=== PATIENT | male | born 1955 | race Caucasian/White ===

== ENCOUNTER 2016-08-29 15:24 | Emergency (ER) | payer OTHER ==
[~2016-08-29] VITALS: Ht 172.7 cm; Wt 86.2 kg
[2016-08-29 15:33] VITALS: BP 146/95
--- NOTE | 2016-08-29 16:11 | ED SKIN/ALLERGY COMPLAINT ---
History of Present Illness General Chief Complaint: Animal/Insect Bite Stated Complaint: BEE STING ON LEG Source: patient, family, old records Exam Limitations: no limitations Vital Signs & Intake/Output Vital Signs & Intake/Output Vital Signs Date Time Temp Pulse Resp B/P B/P Pulse O2 O2 Flow FiO2 Mean Ox Delivery Rate 08/29 1533 98.3 95 15 146/95 97 Room Air Room Air Allergies Coded Allergies: bee venom protein (honey bee) (Severe, THROAT SWELLING 08/29/16) Reconcile Medications Cephalexin (Keflex) 500 MG CAPSULE 1 CAP PO TID cellulitis Triage Note: PT TO ED FOR BEE STING THAT HAPPENED ON WEDNESDAY, HAS AN ALLERGY TO BEES, BUT TOOK BENADRYL IMMEDIATELY AND IT WAS OKAY. PT SEEN BY DR. MOLINA YESTERDAY WHO SAID IT WAS FINE, BUT TODAY ITS WARM, RED AND HOT TO TOUCH. Triage Nurses Notes Reviewed? yes Onset: Abrupt Duration: day(s): (3), constant Timing: recent history Severity: mild, moderate Severity Numbers: 6 Location: extremities Possible Factors: insect sting No Modifying Factors: none Associated Symptoms: denies HPI: 61-year-old male presents to ER for evaluation complain redness warmth and pain to the right anterior santos for the past 3 days. He states his symptoms began after he was stung by a bee intervention. He is allergic to bees he took Benadryl at the time and states that he denies any other rashes body difficulty swallowing difficulty breathing nausea or vomiting or diarrhea. He went to his primary care physician regarding the redness and warmth however he told him to keep taking Benadryl. Patient denies any fevers or chills no modifying factors or associated symptoms. He denies history of similar reactions in the past. No chest pain shortness of breath diaphoresis (CAROL GALLEGO) Past History Travel History Traveled to [place] past 21 day No Medical History Any Pertinent Medical History? see below for history Neurological: NONE EENT: NONE Cardiovascular: hypertension, hyperlipidemia, MD Respiratory: NONE Gastrointestinal: NONE Hepatic: NONE Renal: NONE Musculoskeletal: NONE Psychiatric: NONE Endocrine: NONE Blood Disorders: NONE Cancer(s): melanoma LEGAL CASHIER/Reproductive: NONE Surgical History Surgical History: non-contributory Psychosocial History What is your primary language Danish Tobacco Use: Current Daily Use Daily Tobacco Use Amount/Type: => 5 Cigarettes daily ETOH Use: denies use Illicit Drug Use: denies illicit drug use Family History Hx Contributory? No (CAROL GALLEGO) Review of Systems Review of Systems Constitutional: Reports: see HPI. All Other Systems: Reviewed and Negative Comments Review of systems: See HPI, All other systems negative. Constitutional, no chills no fever, no malaise no weight loss HEENT: No visual changes no sore throat no congestion, no ear pain Cardiovascular: No chest pain , no palpitation Skin: no rashes, no change in skin Respiratory: No dyspnea no cough no sputum GI: No nausea no vomiting, no diarrhea, : No dysuria Muscle skeletal: No joint pain, no joint swelling, no back pain, no neck pain, Neurologic: No numbness no headache Psych: No stress Heme/endocrine: No bruising no bleeding Immunology: No lymphadenopathy (CAROL GALLEGO) Physical Exam Physical Exam General Appearance: well developed/nourished, no apparent distress, alert, awake , comfortable Comments: Well-developed well-nourished patient in no apparent distress. HEENT: Atraumatic, extraocular motion intact Neck: Supple, FROM Back: FROM Cardiovascular: Regular rate and rhythms no murmurs rubs or gallops, Respiratory: Chest nontender.There were no bony deformities, no asymmetry. No respiratory distress. Patient speaking in full complete sentences. Breath sounds clear to auscultation bilaterally: NO W/R/R Extremities: full range of motion Neuro: awake, alert, and oriented to person, place and time. There were no obvious focal neurologic abnormalities. Skin: Warm & dry; there is a 6 x 7 cm area of erythema and warmth to the anterior right santos there is no streaking up the leg, there is no other rash to the exposed skin Psych: Mood affect normal, normal memory normal judgment. (CAROL GALLEGO) Progress Differential Diagnosis: abscess/cellulitis, allergic reaction, anaphylaxis, contact dermatitis, erythema multiforme, lyme disease, urticaria Plan of Care: Symptoms are consistent with a cellulitis prescription for Keflex provided discussed with him need for close follow-up with his primary care return to ER in 48 hours for wound check return anytime sooner with any concerns return precautions were discussed with patient he feels comfortable with plan cleared for discharge (CAROL GALLEGO) Departure Departure Time of Disposition: 1625 Disposition: HOME OR SELF CARE Condition: Stable Clinical Impression Primary Impression: Cellulitis Referrals: TERESITA DALEY,GUSTAVO (PCP/Family) Additional Instructions: Keflex as directed. This prescription was sent to [facility] in [place]. follow up with her primary care physician or return to ER if your symptoms worsen he develop fever chills or any other concerns. Departure Forms: Customer Survey General Discharge Information Prescriptions: Current Visit Scripts Cephalexin (Keflex) 1 CAP PO TID #21 CAP (CAROL GALLEGO) PA/PLASTIC TILE SETTER Co-Sign Statement Statement: ED Attending supervision documentation- [] I saw and evaluated the patient. I have also reviewed all the pertinent lab results and diagnostic results. I agree with the findings and the plan of care as documented in the PA's/PLASTIC TILE SETTER's documentation. [X] I have reviewed the ED Record and agree with the PA's/PLASTIC TILE SETTER's documentation. [] Additions or exceptions (if any) to the PAs/PLASTIC TILE SETTER's note and plan are summarized below: [] (MARIO DALEY,PRICILA Murphy)
[2016-08-29] MEDS ORDERED: KEFLEX500 M1 PO (16:27)
== END 2016-08-29 16:34 ==
LOC: ERH 15:24
DX: L03.115 Cellulitis of right lower limb (principal)